=== PATIENT | male | born 1970 | race African-American/Black ===

== ENCOUNTER 2018-12-25 18:30 | Emergency (ER) | payer OTHER ==
[~2018-12-25] VITALS: Ht 190.5 cm; Wt 86.2 kg
[~2018-12-25 18:30] MED LIST: CORTISPORIN EY7.5 ML OP; FLEXERIL PO; IBUPROFEN 600600 M1 PO; IBUPROFEN 800800 MG PO; KEFLEX500 MG PO; MEDROLDOSEPACK PO; NOHOMEMEDICATIONS; NORCO 5-325 TA1 EACH PO; PREVACID 30MG C30 M1 PO; ULTRAM 50MG TAB50 MG PO; ZOFRAN4 MG PO
[2018-12-25 19:02] LABS: ABSOLUTE NEUTROPHILS 2.7 thou/uL (1.4-8.2); BASOPHILS 0.3 % (0.0-2.0); EOSINOPHILS 0.8 % (0.0-3.0); HEMOGLOBIN 14.1 gm/dL (14.0-18.0); LYMPHOCYTES 22.9 % (24.0-44.0); MCH 31.9 pg (26.0-34.0); MCHC 34.4 g/dL (28.0-37.0); MCV 92.5 fL (80.0-100.0); PLATELET COUNT 182 thou/uL (150-400); RBC 4.43 mil/uL (4.50-6.00); RDW 13.7 % (10.5-14.5); WBC 4.1 thou/uL (4.0-11.0)
[2018-12-25 19:11] LABS: ANION GAP 5 mmol/L (7-16); BUN 17 mg/dL (7-18); CALCIUM 9.1 mg/dL (8.5-10.1); CHLORIDE 101 mmol/L (98-107); CO2 30 mmol/L (21-32); CREATININE 1.3 mg/dL (0.7-1.3); GLUCOSE 95 mg/dL (74-106); POTASSIUM 3.9 mmol/L (3.5-5.1); SODIUM 136 mmol/L (136-145)
[2018-12-25 19:22] LABS: ALBUMIN 3.3 g/dL (3.4-5.0); SGOT 24 U/L (15-37); SGPT 29 U/L (30-65); TOTAL BILIRUBIN 0.2 mg/dL (<0.1-1.0); TOTAL PROTEIN 7.4 g/dL (6.4-8.2); TROPONIN-I <0.06 ng/mL (<0.06)
[2018-12-25] MEDS ORDERED: NAPROSYN500 MG PO (21:18)
[2018-12-25 21:51] VITALS: BP 118/63
--- NOTE | 2018-12-26 09:19 | EKG ---
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 : 1970 Requested By: Everett Johnston Order Number: [id number] MD: Griffin Govea Measurements Intervals [place] Rate: 91 P: 65 [place]: 133 QRS: 40 QRSD: 89 T: -45 QT: 368 QTc: 453 Interpretive Statements Sinus rhythm Nonspecific T wave abnormality No previous ECG available for comparison Electronically Signed On 12-26-2018 9:19:37 CDT by Griffin Govea [email or web address] ��������������������������������������������� <ELECTRONICALLY SIGNED> ���������������������������������������� By: Griffin Govea MD, [facility] ��������������������������������������������� 12/26/18 0919 [id number] 51 Griffin Govea MD, FACC /EPI
== END 2018-12-25 21:54 | disposition home or self-care (01) ==
LOC: ER 18:30
PROVIDERS: Emergency Medicine
DX: R07.89 Other chest pain (principal); M25.561 Pain in right knee